=== PATIENT | male | born 1990 | race Caucasian/White ===

== ENCOUNTER 2017-03-11 02:23 | Inpatient (IN) | payer OTHER ==
[~2017-03-11] VITALS: Ht 167.6 cm; Wt 83.2 kg
[2017-03-11] MEDS ORDERED: ADDERALL20 MG PO (02:30)
[2017-03-11] MEDS ORDERED: ATARAX 10MG10 MG/TAB PO (02:30)
[2017-03-11 03:04] LABS: BASO # 0.1 (0.0-0.2); BASO % 0.6 % (0.0-2.0); EOS # 0.1 (0.0-0.7); EOS % 0.9 % (0-4.0); GRAN # 7.5 (1.4-6.5); GRAN % 64.7 % (42.2-75.2); HEMATOCRIT 49.8 % (42.0-52.0); LYMPH # 2.8 (1.2-3.4); LYMPH % 24.5 % (20.0-51.0); MEAN CELL VOLUME 90 fl (80.0-100.0); MEAN CORPUSCULAR HEMOGLOBIN 32 pg (27.0-31.0); MEAN CORPUSCULAR HGB CONC 36 g/dl (33.0-37.0); MEAN PLATELET VOLUME 10.7 fl (7.4-10.4); MONO % 8.9 % (1.7-9.3); PLATELET COUNT 193 K/mm3 (130-400); RED BLOOD COUNT 5.55 M/mm3 (4.20-5.60); REDCELL DISTRIBUTION WIDTH-CV 11.5 % (11.5-14.5); WHITE BLOOD COUNT 11.6 K/mm3 (4.8-10.8)
[2017-03-11 03:13] LABS: ADJUSTED CALCIUM 9.6 mg/dL (8.4-10.2); ALANINE AMINOTRANSFERASE 57 U/L (21-72); ALBUMIN 4.9 gm/dL (3.5-5.0); ALKALINE PHOSPHATASE 68 U/L (50-136); ANION GAP 18 mmol/L (7-16); BILIRUBIN,TOTAL 1.2 mg/dL (0.0-1.0); BLOOD UREA NITROGEN 7 mg/dL (9-20); CALCIUM 10.3 mg/dL (8.4-10.2); CARBON DIOXIDE 19 mmol/L (22-30); CHLORIDE 100 mmol/L (98-107); CREATININE, serum 0.88 mg/dL (0.66-1.25); GLUCOSE 116 mg/dL (74-106); LIPASE 714 U/L (23-300); POTASSIUM 3.1 mmol/L (3.4-5.0); SODIUM 137 mmol/L (137-145); TOTAL PROTEIN 7.8 gm/dL (6.4-8.2)
[2017-03-11 05:00] VITALS: BP 132/89; PULSE 81; TEMP 98
[2017-03-11 08:33] VITALS: BP 121/63; PULSE 90; TEMP 98.9
[2017-03-11 12:02] VITALS: BP 135/98; PULSE 90; TEMP 97.7
[2017-03-11 15:45] VITALS: BP 127/87; PULSE 75; TEMP 98.1
[2017-03-11 20:30] VITALS: BP 141/87; PULSE 89; TEMP 98.3
[2017-03-12] VITALS (8 sets, daily range): BP systolic 138–146; BP diastolic 73–92; PULSE 80–96; TEMP 97.8–98.3
[2017-03-12 07:08] LABS: CALCIUM 9.2 mg/dL (8.4-10.2); CREATININE, serum 0.75 mg/dL (0.66-1.25); POTASSIUM 3.6 mmol/L (3.4-5.0)
[2017-03-13] VITALS (9 sets, daily range): BP systolic 118–140; BP diastolic 74–97; PULSE 68–97; TEMP 97.8–98.6
[2017-03-13 07:12] LABS: CALCIUM 9.3 mg/dL (8.4-10.2); CREATININE, serum 0.84 mg/dL (0.66-1.25); MAGNESIUM 1.8 mg/dL (1.6-2.3)
[2017-03-14 00:50] VITALS: BP 130/78; PULSE 65; TEMP 98.7
[2017-03-14 02:05] VITALS: BP 130/82; PULSE 79; TEMP 98.4
[2017-03-14 04:24] VITALS: BP 124/72; PULSE 89; TEMP 98.5
[2017-03-14 07:12] LABS: CREATININE, serum 0.87 mg/dL (0.66-1.25); POTASSIUM 3.7 mmol/L (3.4-5.0)
[2017-03-14 07:45] VITALS: BP 124/69; PULSE 83; TEMP 97.9
[2017-03-14] MEDS ORDERED: PRIL40 PO (09:14)
[2017-03-14 10:06] VITALS: BP 114/67; PULSE 81; TEMP 97.8
[2017-03-15] MEDS ORDERED: PERCOCET 325 MG1 TA2 PO (09:09)
== END 2017-03-14 12:55 | disposition home or self-care (01) | DRG 440 ==
LOC: COL.ER 02:23 → MEDICAL 04:04
PROVIDERS: Emergency Medicine; Internal Medicine Cardiovascular Disease
DX: K85.90 Acute pancreatitis without necrosis or infection, unspecified (principal); E87.6 Hypokalemia; K21.9 Gastro-esophageal reflux disease without esophagitis; K29.70 Gastritis, unspecified, without bleeding; F10.10 Alcohol abuse, uncomplicated; Y90.0 Blood alcohol level of less than 20 mg/100 ml
CPT/HCPCS: 99222-AI; 99232-AI; 99233-AI; 99239; J1170; J2405; J2765; J3010; J3480; J7030; Q9967